=== PATIENT | female | born 1940 ===

== ENCOUNTER 2020-05-14 23:56 | Inpatient (IN) ==
[2020-05-15] MEDS ORDERED: HEPARIN/NACL 0.9% 2 UNITS/ML 1,000 ML IV ONE (02:14)
[2020-05-15] MEDS ORDERED: LIDOCAINE 1% 20 ML VIAL ONE (02:14)
[2020-05-15] MEDS ORDERED: MIDAZOLAM 2 MG/2 ML VIAL ONE (02:23)
[2020-05-15] MEDS ORDERED: fentaNYL 100 MCG/2 ML VIAL ONE (02:24)
[2020-05-15 02:40] LABS: ABG Base Excess -3.1 MMOL/L (-2.5-2.5); ABG HCO3 23.2 MMOL/L (20-26); ABG Oxygen Saturation 97.2 % (95-100); ABG PCO2 46.2 MM HG (35-48); ABG PH 7.319 (7.35-7.45); ABG PO2 100.6 MM HG (80-95); ABG TCO2 24.6 MMOL/L (23-27)
[2020-05-15 02:41] LABS: Basophils % 0.3 % (0.0-0.8); Eosinophils # 0.1 10*3/uL (0.0-0.87); Eosinophils % 0.3 % (0.00-10.9); Hematocrit 42.1 VOL% (35.7-47.0); Hemoglobin 13.6 GM/DL (12.0-16.0); Immature Granulocytes % 0.6 %; Immature Granulocytes Absolute 0.08 #; Lymphocytes # 1.3 10*3/uL (1.4-4.0); Mean Corpuscular HGB Conc 32.3 GM/DL (32-36); Mean Corpuscular Volume 100.5 FL (87-102); Mean Platelet Volume 11.7 FL (9.6-12.0); Monocytes % 12.2 % (1.7-12.7); NRBC # 0.02 10*3/uL; Neutrophils % 77.6 % (38.7-73.9); Platelet Count 116 T/CUMM (130-400); Red Blood Count 4.19 MC/CUMM (3.8-5.5); White Blood Count 14.5 T/CUMM (4-12)
[2020-05-15] MEDS ORDERED: DEXTROSE 50% 25 GM/50 ML VIAL IV PRN (02:54)
[2020-05-15] MEDS ORDERED: GLUCAGON 1 MG VIAL IM PRN (02:54)
[2020-05-15 03:04] LABS: Alanine Aminotransferase 223 U/L (13-56); Alkaline Phosphatase 88 U/L (45-117); Aspartate Amino Transferase 368 U/L (0-37); Blood Urea Nitrogen 43 MG/DL (7-18); Calcium 8.8 MG/DL (8.5-10.1); Estimated Glom Filtration Rate 17 ML/MIN; Glucose 335 MG/DL (74-106); Osmolality,Calculated 304.3 MOS/KG (273-304)
[2020-05-15 03:51] LABS: Bacteria,Urine Occasional /HPF (Few); Bilirubin,Urine Negative (Negative); Blood, Urine Small mg/dL (Negative); Glucose,Urine (UA) 50 mg/dL (Negative); Hyaline Casts,Urine 22 /LPF (0-3); Ketones,Urine Negative (Negative); Mucus,Urine Occasional /LPF (Occasional); Nitrite,Urine Negative (Negative); Protein,Urine 100 MG/DL; RBC,Urine 1 /HPF (0-4); Squamous Epithelial Cell,Urine Occasional /HPF (0-10); Urine Appearance CLEAR (Clear); Urine Color Yellow (Yellow); Urine Specific Gravity 1.011 (1.001-1.035); Urine Urobilinogen < 2.0 EU/DL (0.2-1.0); WBC,Urine 2 /HPF (0-6)
[2020-05-15 03:59] LABS: INR 1.1; PT Patient Result 11.9 SECS (9.8-11.9); Partial Thromboplastin Time 22.8 SECS (23.9-33.8)
[2020-05-15 04:56] LABS: Hypochromasia 1+; Platelet Estimate Decreased
[2020-05-15 05:03] LABS: Basophils % 0.3 % (0.0-0.8); Eosinophils % 0.1 % (0.00-10.9); Hematocrit 41.5 VOL% (35.7-47.0); Hemoglobin 13.4 GM/DL (12.0-16.0); Immature Granulocytes % 0.5 %; Immature Granulocytes Absolute 0.07 #; Lymphocytes # 0.9 10*3/uL (1.4-4.0); Lymphocytes % 6.9 % (21.3-54.2); Mean Corpuscular HGB Conc 32.3 GM/DL (32-36); Mean Platelet Volume 11.3 FL (9.6-12.0); Monocytes % 11.6 % (1.7-12.7); Neutrophils % 80.6 % (38.7-73.9); Platelet Count 115 T/CUMM (130-400); Red Blood Count 4.15 MC/CUMM (3.8-5.5); Red Cell Distribution Width 14.7 % (9.3-17.3); White Blood Count 13.6 T/CUMM (4-12)
[2020-05-15 05:22] LABS: Hypochromasia 1+; Platelet Estimate Decreased
[2020-05-15 05:33] LABS: Calcium 8.8 MG/DL (8.5-10.1); Osmolality,Calculated 300.5 MOS/KG (273-304); Risk Ratio 4.66; Thyroid Stimulating Hormone 1.15 uIU/ml (0.358-3.74); VLDL CHOLESTEROL 23.8 MG/DL
[2020-05-15] MEDS: INSULIN LISPRO 100 UNIT/ML SUBCUT SCH ×3 (06:45→18:42)
[2020-05-15] MEDS: PANTOPRAZOLE 40 MG VIAL IV SCH (08:45)
[2020-05-15] MEDS: INSULIN GLARGINE 100 UNIT/ML SUBCUT SCH (08:50)
[2020-05-15] MEDS: NYSTATIN CREAM 15 GM TUBE TOP SCH ×2 (12:09→20:39)
[2020-05-15] MEDS ORDERED: LABETALOL 20 MG/4 ML SYRINGE IV ONE (15:24)
[2020-05-16] MEDS: INSULIN LISPRO 100 UNIT/ML SUBCUT SCH ×4 (00:06→18:18)
[2020-05-16 04:40] LABS: ABG Base Excess 1.8 MMOL/L (-2.5-2.5); ABG HCO3 25.5 MMOL/L (20-26); ABG Oxygen Saturation 99.2 % (95-100); ABG PH 7.457 (7.35-7.45); ABG PO2 228.4 MM HG (80-95); ABG TCO2 26.7 MMOL/L (23-27)
[2020-05-16 05:14] LABS: Basophils % 0.2 % (0.0-0.8); Eosinophils # 0.1 10*3/uL (0.0-0.87); Eosinophils % 1.1 % (0.00-10.9); Hematocrit 33.6 VOL% (35.7-47.0); Hemoglobin 11.5 GM/DL (12.0-16.0); Immature Granulocytes % 0.4 %; Immature Granulocytes Absolute 0.04 #; Lymphocytes # 1.8 10*3/uL (1.4-4.0); Lymphocytes % 16.2 % (21.3-54.2); Mean Corpuscular HGB Conc 34.2 GM/DL (32-36); Mean Corpuscular Volume 95.5 FL (87-102); Mean Platelet Volume 12.1 FL (9.6-12.0); Monocytes % 11.3 % (1.7-12.7); Neutrophils % 70.8 % (38.7-73.9); Platelet Count 100 T/CUMM (130-400); Red Blood Count 3.52 MC/CUMM (3.8-5.5); Red Cell Distribution Width 14.8 % (9.3-17.3); White Blood Count 10.9 T/CUMM (4-12)
[2020-05-16 05:33] LABS: Albumin 2.5 G/DL (3.4-5.0); Bilirubin,Total 0.5 MG/DL (0.2-1.0); Calcium 9.1 MG/DL (8.5-10.1); Osmolality,Calculated 297.8 MOS/KG (273-304); Prealbumin 26.3 MG/DL (20-40); Total Protein 6.1 G/DL (6.4-8.3)
[2020-05-16] MEDS ORDERED: ceFAZolin 1,000 MG VIAL IRRIG ONE (08:45)
[2020-05-16] MEDS: MORPHINE 4 MG/1 ML VIAL IV PRN (09:15)
[2020-05-16] MEDS: PANTOPRAZOLE 40 MG VIAL IV SCH (09:35)
[2020-05-16] MEDS: INSULIN GLARGINE 100 UNIT/ML SUBCUT SCH (09:38)
[2020-05-16] MEDS: NYSTATIN CREAM 15 GM TUBE TOP SCH ×2 (09:39→21:59)
[2020-05-16] MEDS ORDERED: ASPIRIN CHEW 81 MG TABLET PO SCH (10:00)
[2020-05-16] MEDS ORDERED: ASPIRIN EC 81 MG TABLET PO SCH (10:00)
[2020-05-16] MEDS ORDERED: VANCOMYCIN INJ 2,000 MG in SODIUM CHLORIDE 0.9% 500 ML IV PRN (10:51)
[2020-05-16] MEDS ORDERED: ENOXAPARIN 30 MG/0.3 ML SYRINGE SUBCUT SCH (11:00)
[2020-05-16] MEDS ORDERED: VANCOMYCIN INJ 2,000 MG in SODIUM CHLORIDE 0.9% 500 ML IV ONE (12:00)
[2020-05-17] MEDS: MORPHINE 4 MG/1 ML VIAL IV PRN (00:16)
[2020-05-17] MEDS: INSULIN LISPRO 100 UNIT/ML SUBCUT SCH ×4 (00:16→17:56)
[2020-05-17 04:15] LABS: ABG Base Excess 1.3 MMOL/L (-2.5-2.5); ABG HCO3 24.5 MMOL/L (20-26); ABG Oxygen Saturation 98.5 % (95-100); ABG PCO2 33.3 MM HG (35-48); ABG PH 7.484 (7.35-7.45); ABG PO2 130.4 MM HG (80-95); ABG TCO2 25.5 MMOL/L (23-27)
[2020-05-17 04:38] LABS: Basophils % 0.3 % (0.0-0.8); Eosinophils # 0.2 10*3/uL (0.0-0.87); Eosinophils % 2.4 % (0.00-10.9); Hematocrit 29.7 VOL% (35.7-47.0); Immature Granulocytes % 0.6 %; Immature Granulocytes Absolute 0.06 #; Lymphocytes # 1.5 10*3/uL (1.4-4.0); Lymphocytes % 14.9 % (21.3-54.2); Mean Corpuscular HGB Conc 33.7 GM/DL (32-36); Mean Corpuscular Volume 95.8 FL (87-102); Mean Platelet Volume 12.1 FL (9.6-12.0); Monocytes % 11.2 % (1.7-12.7); Neutrophils % 70.6 % (38.7-73.9); Red Cell Distribution Width 14.9 % (9.3-17.3); White Blood Count 10.1 T/CUMM (4-12)
[2020-05-17 04:42] LABS: Platelet Count 82 T/CUMM (130-400)
[2020-05-17 04:46] LABS: Osmolality,Calculated 291.1 MOS/KG (273-304)
[2020-05-17 05:00] LABS: Hypochromasia 1+; Platelet Estimate Decreased
[2020-05-17] MEDS ORDERED: LORazepam 2 MG/1 ML VIAL IV PRN (09:24)
[2020-05-17] MEDS: PIPERACILLIN/TAZOBACTAM 3,375 MG in SODIUM CHLORIDE 0.9% 100 ML IV SCH ×2 (09:56→18:13)
[2020-05-17] MEDS: PANTOPRAZOLE 40 MG VIAL IV SCH (09:57)
[2020-05-17] MEDS: ENOXAPARIN 40 MG/0.4 ML SYRINGE SUBCUT SCH (10:12)
[2020-05-17] MEDS: INSULIN GLARGINE 100 UNIT/ML SUBCUT SCH (10:13)
[2020-05-17] MEDS: NYSTATIN CREAM 15 GM TUBE TOP SCH ×2 (10:15→21:49)
[2020-05-17] MEDS: VANCOMYCIN INJ 2,000 MG in SODIUM CHLORIDE 0.9% 500 ML IV SCH (15:06)
[2020-05-18] MEDS: INSULIN LISPRO 100 UNIT/ML SUBCUT SCH ×4 (00:25→18:03)
[2020-05-18] MEDS: PIPERACILLIN/TAZOBACTAM 3,375 MG in SODIUM CHLORIDE 0.9% 100 ML IV SCH ×4 (00:26→22:21)
[2020-05-18 05:02] LABS: ABG Base Excess 1.2 MMOL/L (-2.5-2.5); ABG HCO3 23.9 MMOL/L (20-26); ABG Oxygen Saturation 98.7 % (95-100); ABG PCO2 31.2 MM HG (35-48); ABG PH 7.503 (7.35-7.45); ABG PO2 151.9 MM HG (80-95); ABG TCO2 24.9 MMOL/L (23-27)
[2020-05-18 05:12] LABS: Basophils % 0.4 % (0.0-0.8); Eosinophils # 0.4 10*3/uL (0.0-0.87); Eosinophils % 3.9 % (0.00-10.9); Hematocrit 28.2 VOL% (35.7-47.0); Hemoglobin 9.4 GM/DL (12.0-16.0); Immature Granulocytes % 0.4 %; Immature Granulocytes Absolute 0.04 #; Lymphocytes # 1.3 10*3/uL (1.4-4.0); Lymphocytes % 14.2 % (21.3-54.2); Mean Corpuscular HGB Conc 33.3 GM/DL (32-36); Mean Corpuscular Volume 95.9 FL (87-102); Mean Platelet Volume 12.7 FL (9.6-12.0); Monocytes % 11.4 % (1.7-12.7); Neutrophils % 69.7 % (38.7-73.9); Red Blood Count 2.94 MC/CUMM (3.8-5.5); Red Cell Distribution Width 15.2 % (9.3-17.3); White Blood Count 9.2 T/CUMM (4-12)
[2020-05-18 05:13] LABS: Platelet Count 75 T/CUMM (130-400)
[2020-05-18 05:29] LABS: Hypochromasia 1+; Platelet Estimate Decreased
[2020-05-18 05:33] LABS: Calcium 8.8 MG/DL (8.5-10.1); Osmolality,Calculated 289.1 MOS/KG (273-304)
[2020-05-18] MEDS ORDERED: VANCOMYCIN 500 MG VIAL IRRIG ONE (08:18)
[2020-05-18] MEDS ORDERED: VANCOMYCIN INJ 500 MG in SODIUM CHLORIDE 0.9% 100 ML IV ONE (08:18)
[2020-05-18] MEDS ORDERED: ceFAZolin 1,000 MG VIAL ONE (09:29)
[2020-05-18] MEDS ORDERED: TISSUE ADHESIVE 1 EACH APPLICATOR TOP ONE (09:29)
[2020-05-18] MEDS ORDERED: LIDOCAINE 1% 20 ML VIAL ONE (09:29)
[2020-05-18] MEDS: INSULIN GLARGINE 100 UNIT/ML SUBCUT SCH (12:17)
[2020-05-18] MEDS: PANTOPRAZOLE 40 MG VIAL IV SCH (12:18)
[2020-05-18] MEDS: ENOXAPARIN 40 MG/0.4 ML SYRINGE SUBCUT SCH (12:21)
[2020-05-18] MEDS: NYSTATIN CREAM 15 GM TUBE TOP SCH ×2 (15:07→21:00)
[2020-05-18] MEDS: VANCOMYCIN INJ 2,000 MG in SODIUM CHLORIDE 0.9% 500 ML IV SCH (15:57)
[2020-05-19] MEDS: INSULIN LISPRO 100 UNIT/ML SUBCUT SCH ×4 (03:28→17:52)
[2020-05-19] MEDS: PIPERACILLIN/TAZOBACTAM 3,375 MG in SODIUM CHLORIDE 0.9% 100 ML IV SCH ×3 (03:30→16:27)
[2020-05-19 04:46] LABS: ABG Base Excess 1.2 MMOL/L (-2.5-2.5); ABG HCO3 25.5 MMOL/L (20-26); ABG Oxygen Saturation 99.3 % (95-100); ABG PCO2 37.6 MM HG (35-48); ABG PH 7.436 (7.35-7.45); ABG TCO2 23.4 MMOL/L (23-27)
[2020-05-19 04:48] LABS: Basophils % 0.1 % (0.0-0.8); Eosinophils # 0.3 10*3/uL (0.0-0.87); Hemoglobin 8.7 GM/DL (12.0-16.0); Immature Granulocytes % 0.7 %; Immature Granulocytes Absolute 0.05 #; Lymphocytes # 1.1 10*3/uL (1.4-4.0); Lymphocytes % 14.5 % (21.3-54.2); Mean Corpuscular HGB Conc 33.5 GM/DL (32-36); Mean Platelet Volume 12.4 FL (9.6-12.0); Monocytes % 12.5 % (1.7-12.7); NRBC # 0.02 10*3/uL; Neutrophils % 68.2 % (38.7-73.9); Platelet Count 84 T/CUMM (130-400); Red Blood Count 2.68 MC/CUMM (3.8-5.5); White Blood Count 7.3 T/CUMM (4-12)
[2020-05-19 05:12] LABS: Calcium 8.4 MG/DL (8.5-10.1); Osmolality,Calculated 290.8 MOS/KG (273-304)
[2020-05-19 05:13] LABS: Hypochromasia 1+; Ovalocytes Slight; Platelet Estimate Decreased
[2020-05-19] MEDS ORDERED: INFLUENZA VIRUS VACCINE 0.5 ML SYRINGE IM ONE (07:49)
[2020-05-19] MEDS: INSULIN GLARGINE 100 UNIT/ML SUBCUT SCH (09:53)
[2020-05-19] MEDS: NYSTATIN CREAM 15 GM TUBE TOP SCH ×2 (09:54→21:35)
[2020-05-19] MEDS: PANTOPRAZOLE 40 MG VIAL IV SCH (09:54)
[2020-05-19] MEDS: ENOXAPARIN 40 MG/0.4 ML SYRINGE SUBCUT SCH (09:54)
[2020-05-19] MEDS: VANCOMYCIN INJ 2,000 MG in SODIUM CHLORIDE 0.9% 500 ML IV SCH (15:31)
[2020-05-20] MEDS: INSULIN LISPRO 100 UNIT/ML SUBCUT SCH ×4 (00:42→18:12)
[2020-05-20] MEDS: PIPERACILLIN/TAZOBACTAM 3,375 MG in SODIUM CHLORIDE 0.9% 100 ML IV SCH ×4 (01:17→23:37)
[2020-05-20 05:17] LABS: Basophils % 0.4 % (0.0-0.8); Eosinophils # 0.4 10*3/uL (0.0-0.87); Eosinophils % 4.8 % (0.00-10.9); Hematocrit 25.3 VOL% (35.7-47.0); Hemoglobin 8.4 GM/DL (12.0-16.0); Immature Granulocytes % 0.8 %; Immature Granulocytes Absolute 0.06 #; Lymphocytes # 1.4 10*3/uL (1.4-4.0); Lymphocytes % 18.7 % (21.3-54.2); Mean Corpuscular HGB Conc 33.2 GM/DL (32-36); Mean Corpuscular Volume 97.3 FL (87-102); Mean Platelet Volume 11.6 FL (9.6-12.0); NRBC # 0.02 10*3/uL; Neutrophils % 59.3 % (38.7-73.9); Platelet Count 103 T/CUMM (130-400); Red Cell Distribution Width 15.2 % (9.3-17.3); White Blood Count 7.3 T/CUMM (4-12)
[2020-05-20 05:39] LABS: Calcium 8.6 MG/DL (8.5-10.1); Osmolality,Calculated 290.7 MOS/KG (273-304)
[2020-05-20 06:07] LABS: Eosinophils 5 % (0-10); Nucleated Red Blood Cells 1 (0-5); Total Cells Counted 100
[2020-05-20 06:08] LABS: Anisocytosis 1+; Band Neutrophils 3 % (0-10); Lymphocytes 20 % (20-55); Macrocytosis 1+; Platelet Estimate Decreased; Segmented Neutrophils 57 % (50-85)
[2020-05-20 07:18] LABS: ABG Base Excess 2.2 MMOL/L (-2.5-2.5); ABG HCO3 26.4 MMOL/L (20-26); ABG Oxygen Saturation 99.5 % (95-100); ABG PCO2 36.2 MM HG (35-48); ABG PH 7.463 (7.35-7.45); ABG TCO2 23.9 MMOL/L (23-27)
[2020-05-20] MEDS ORDERED: FUROSEMIDE 40 MG/4 ML VIAL IV ONE (07:51)
[2020-05-20] MEDS: PANTOPRAZOLE 40 MG VIAL IV SCH (08:45)
[2020-05-20] MEDS: NYSTATIN CREAM 15 GM TUBE TOP SCH ×2 (08:45→21:35)
[2020-05-20] MEDS: ENOXAPARIN 40 MG/0.4 ML SYRINGE SUBCUT SCH (08:45)
[2020-05-20] MEDS: INSULIN GLARGINE 100 UNIT/ML SUBCUT SCH (12:28)
[2020-05-20] MEDS: VANCOMYCIN INJ 2,000 MG in SODIUM CHLORIDE 0.9% 500 ML IV SCH (15:30)
[2020-05-21] MEDS: INSULIN LISPRO 100 UNIT/ML SUBCUT SCH ×4 (00:02→18:11)
[2020-05-21 03:42] LABS: ABG HCO3 27.1 MMOL/L (20-26); ABG Oxygen Saturation 99.7 % (95-100); ABG PCO2 37.1 MM HG (35-48); ABG PH 7.465 (7.35-7.45); ABG TCO2 24.7 MMOL/L (23-27)
[2020-05-21 03:54] LABS: Basophils % 0.3 % (0.0-0.8); Eosinophils # 0.4 10*3/uL (0.0-0.87); Eosinophils % 4.9 % (0.00-10.9); Hematocrit 25.5 VOL% (35.7-47.0); Hemoglobin 8.7 GM/DL (12.0-16.0); Immature Granulocytes % 0.9 %; Immature Granulocytes Absolute 0.07 #; Lymphocytes # 1.3 10*3/uL (1.4-4.0); Lymphocytes % 18.2 % (21.3-54.2); Mean Corpuscular HGB Conc 34.1 GM/DL (32-36); Mean Corpuscular Volume 95.1 FL (87-102); Mean Platelet Volume 11.5 FL (9.6-12.0); Monocytes % 15.3 % (1.7-12.7); NRBC # 0.02 10*3/uL; Neutrophils % 60.4 % (38.7-73.9); Platelet Count 120 T/CUMM (130-400); Red Blood Count 2.68 MC/CUMM (3.8-5.5); Red Cell Distribution Width 14.6 % (9.3-17.3); White Blood Count 7.4 T/CUMM (4-12)
[2020-05-21 04:18] LABS: Calcium 8.8 MG/DL (8.5-10.1); Osmolality,Calculated 285.1 MOS/KG (273-304)
[2020-05-21 07:07] LABS: Eosinophils 2 % (0-10); Lymphocytes 20 % (20-55); Platelet Estimate Normal; Segmented Neutrophils 67 % (50-85); Total Cells Counted 100
[2020-05-21 07:10] LABS: Polychromasia Few; Target Cells Few
[2020-05-21 07:11] LABS: Macrocytosis Slight
[2020-05-21] MEDS: PIPERACILLIN/TAZOBACTAM 3,375 MG in SODIUM CHLORIDE 0.9% 100 ML IV SCH ×3 (08:15→23:52)
[2020-05-21] MEDS ORDERED: FUROSEMIDE 40 MG/4 ML VIAL IV ONE (08:31)
[2020-05-21] MEDS: NYSTATIN CREAM 15 GM TUBE TOP SCH ×2 (09:12→20:10)
[2020-05-21] MEDS: PANTOPRAZOLE 40 MG VIAL IV SCH (09:12)
[2020-05-21] MEDS: ENOXAPARIN 40 MG/0.4 ML SYRINGE SUBCUT SCH (09:12)
[2020-05-21] MEDS: INSULIN GLARGINE 100 UNIT/ML SUBCUT SCH (09:12)
[2020-05-21] MEDS: POTASSIUM CHLORIDE 20 MEQ/15 ML UDCUP PER TUBE PRN ×4 (11:40→18:12)
[2020-05-21] MEDS: VANCOMYCIN INJ 2,000 MG in SODIUM CHLORIDE 0.9% 500 ML IV SCH (13:47)
[2020-05-21] MEDS: MORPHINE 4 MG/1 ML VIAL IV PRN (20:52)
[2020-05-22] MEDS: INSULIN LISPRO 100 UNIT/ML SUBCUT SCH ×4 (00:53→18:07)
[2020-05-22 05:08] LABS: Basophils % 0.5 % (0.0-0.8); Eosinophils # 0.4 10*3/uL (0.0-0.87); Eosinophils % 6.1 % (0.00-10.9); Hematocrit 27.4 VOL% (35.7-47.0); Hemoglobin 9.3 GM/DL (12.0-16.0); Immature Granulocytes % 1.1 %; Immature Granulocytes Absolute 0.07 #; Lymphocytes # 1.3 10*3/uL (1.4-4.0); Lymphocytes % 19.3 % (21.3-54.2); Mean Corpuscular HGB Conc 33.9 GM/DL (32-36); Mean Corpuscular Volume 96.1 FL (87-102); Mean Platelet Volume 11.2 FL (9.6-12.0); Monocytes % 14.6 % (1.7-12.7); Neutrophils % 58.4 % (38.7-73.9); Platelet Count 164 T/CUMM (130-400); Red Blood Count 2.85 MC/CUMM (3.8-5.5); Red Cell Distribution Width 14.7 % (9.3-17.3); White Blood Count 6.6 T/CUMM (4-12)
[2020-05-22 05:16] LABS: Calcium 9.1 MG/DL (8.5-10.1); Osmolality,Calculated 284.4 MOS/KG (273-304)
[2020-05-22 05:34] LABS: Prealbumin 15.6 MG/DL (20-40)
[2020-05-22 07:35] LABS: ABG HCO3 26.2 MMOL/L (20-26); ABG Oxygen Saturation 99.3 % (95-100); ABG PCO2 37.3 MM HG (35-48); ABG TCO2 23.7 MMOL/L (23-27)
[2020-05-22] MEDS ORDERED: LORazepam 2 MG/1 ML VIAL ONE (08:15)
[2020-05-22] MEDS: PANTOPRAZOLE 40 MG VIAL IV SCH (09:42)
[2020-05-22] MEDS: ENOXAPARIN 40 MG/0.4 ML SYRINGE SUBCUT SCH (09:47)
[2020-05-22] MEDS: INSULIN GLARGINE 100 UNIT/ML SUBCUT SCH (09:48)
[2020-05-22] MEDS: PIPERACILLIN/TAZOBACTAM 3,375 MG in SODIUM CHLORIDE 0.9% 100 ML IV SCH ×2 (09:52→17:28)
[2020-05-22] MEDS: NYSTATIN CREAM 15 GM TUBE TOP SCH (09:53)
[2020-05-22] MEDS ORDERED: POTASSIUM PHOSPHATE 20 MMOL in SODIUM CHLORIDE 0.9% 100 ML IV ONE (10:00)
[2020-05-22] MEDS ORDERED: ASPIRIN CHEW 81 MG TABLET PO SCH (10:40)
[2020-05-22] MEDS ORDERED: METOPROLOL TARTRATE 25 MG TABLET NG SCH (10:41)
[2020-05-22] MEDS: VANCOMYCIN INJ 2,000 MG in SODIUM CHLORIDE 0.9% 500 ML IV SCH (14:45)
[2020-05-22] MEDS: MORPHINE 4 MG/1 ML VIAL IV PRN (19:30)
[2020-05-22 20:18] VITALS: BP 124/53
== END 2020-05-22 20:07 | disposition hospice, home (50) | DRG 242 ==
LOC: N.ICU 05-15 02:10 → SUATTDRO 05-15 02:10
PROVIDERS: ADMIT Phlebology; ATTEND Family Medicine